=== PATIENT | female | born 1985 | race African-American/Black ===

== ENCOUNTER 2022-10-20 14:57 | Emergency (ER) | payer OTHER ==
[2022-10-20 15:36] VITALS: BMI 32.2
[2022-10-20 15:36] LABS: BASO % 0.5 % (0-2.0); EOS % 0.2 % (0-4.5); HEMATOCRIT 17.8 % (32.4-45.2); LYMPH % 17.8 % (8-40); MCHC 29.7 g/dl (32.0-36.0); MEAN CELL VOLUME 66.8 fl (80-96); MEAN PLT VOLUME 7.7 fl (7.5-11.1); NEUT % 73.5 % (42.8-82.8); PLATELET COUNT 701 10^3/uL (134-434); RBC 2.66 M/mm3 (3.60-5.2); RDW 16.7 % (11.6-15.6); WHITE BLOOD COUNT 18.6 K/mm3 (4.0-10.0)
[2022-10-20 15:44] LABS: INR 2.52 (0.83-1.09); MCH 19.8 pg (25.7-33.7)
[2022-10-20 15:45] LABS: HEMOGLOBIN 5.3 GM/dL (10.7-15.3)
[2022-10-20 15:48] LABS: POTASSIUM 4.6 mmol/L (3.5-5.1)
[2022-10-20 15:49] LABS: CALCIUM 9.5 mg/dL (8.5-10.1)
[2022-10-20 15:51] LABS: ALBUMIN 2.6 g/dl (3.4-5.0); BLOOD UREA NITROGEN 27.4 mg/dL (7-18)
[2022-10-20 15:54] LABS: CREATININE 3.4 mg/dL (0.55-1.3)
[2022-10-20 15:55] LABS: BILIRUBIN,TOTAL 0.1 mg/dL (0.2-1); TOT PROT 6.4 g/dl (6.4-8.2)
[2022-10-20 16:51] LABS: ANISOCYTOSIS 2+; MACROCYTOSIS 1+; OVALOCYTE 1+; TARGET CELLS 1+
[2022-10-20 19:48] VITALS: BP 157/80; PULSE 121; RESP 18; TEMP 98.5
== END 2022-10-20 19:49 | disposition short-term general hospital (02) ==
LOC: JER 14:57
DX: R06.02 Shortness of breath (principal); N93.9 Abnormal uterine and vaginal bleeding, unspecified; I95.9 Hypotension, unspecified; R00.0 Tachycardia, unspecified; D64.9 Anemia, unspecified; N17.9 Acute kidney failure, unspecified
CPT/HCPCS: 36415; 36430; 80053; 84703; 85025; 85610; 86850; 86900; 86901; 86922; 93005; 93010; 99285-25; P9058